=== PATIENT | female | born 1975 | race Asian ===

== ENCOUNTER 2020-11-15 11:58 | Outpatient (CLI) | payer BC, SELFPAY ==
--- NOTE | 2020-11-15 10:45 | DI.RAD_ITS ---
Exam(s) XR SHOULDER RT COMPLETE 2+V EXAM: XR SHOULDER RT COMPLETE 2+V CLINICAL HISTORY: right shoulder pain TECHNIQUE: COMPARISON: No exams were available for comparison FINDINGS: Two views were obtained. Cartilaginous joint space of the glenohumeral joint appears fairly well sadiq ntained. The distal end of the clavicle appears slightly elevated raising the possibility of low-gra de acromioclavicular separation. No other bony or soft tissue abnormality seen. IMPRESSION: RADIATION DOSE DELIVERED: Total DLP
== END 2020-11-15 11:59 | disposition home or self-care (01) ==
LOC: DIORS 11:59
PROVIDERS: PCP Family Medicine; Referring Provider Family Medicine; Visit Provider Student in an Organized Health Care Education/Training Program
DX: M25.511 Pain in right shoulder (principal)
CPT/HCPCS: 73030

== ENCOUNTER 2021-02-14 01:58 | Outpatient (CLI) | payer BC, SELFPAY ==
--- NOTE | 2021-02-14 07:45 | DI.MAMMO_ITS ---
Exam(s) MAMMO SCREENING EXAM: MAMMO SCREENING CLINICAL HISTORY: screening,Z12.39 TECHNIQUE: Bilateral full field digital CC and MLO mammographic images were obtained with 3D tomosyn thesis and utilizing computer aided detection (CAD). COMPARISON: None. FINDINGS: Masses/Architectural Distortion: None seen. Microcalcifications: No suspicious pleomorphic-type are seen. Skin Thickening/Nipple Retraction: None. IMPRESSION: 1. No significant interval change with no specific features of malignancy noted. 2. Unless there is more urgent need, screening mammography is recommended, as per [place] [employer] guidelines. BI-RADS Category 1 - Negative Breast Density - Category C - Heterogeneously dense Breast density category C or D implies that the patient has dense breast tissue. Dense breast tissue is very common and is not abnormal but dense breast tissue can make it harder to find cancer on a ma mmogram. Also, dense breast tissue may increase their breast cancer risk. This information about the result of the mammogram report was provided to the patient to raise their awareness. Use this report when you speak with the patient about their risks for breast cancer, which includes their family hist ory. At that time, you may recommend for more screening tests (Ultrasound or MRI) as they might be us eful based on their risk. A negative radiographic report should not delay biopsy if a dominant or clinically suspicious mass is present. Up to ten percent of cancers are not identified on mammography. A negative report may reinforce clinical impression. Adenosis and dense breasts may obscure an underlying neoplasm. False positive reports average 6 to 10%. Patient will receive a letter notifying them of these results.
== END 2021-02-14 02:18 ==
PROVIDERS: PCP Family Medicine; Visit Provider Nurse Practitioner
DX: Z12.31 Encounter for screening mammogram for malignant neoplasm of breast (principal)
CPT/HCPCS: 77063; 77067

== ENCOUNTER 2021-02-16 11:20 | Outpatient (REF) | payer BC, SELFPAY ==
--- NOTE | 2021-02-16 10:30 | PAPFT_PTH ---
PATIENT: Miki Canales LOC: [facility] U#:[id number] AGE/SX: 45/F ROOM: RE02/16/[address]: KAVYA Jackson : 1975 BED: DIS: 02/16/2021 SPEC #: [id number] RECD: 02/16/21 12:59 STATUS: ANA REShelia #: [id number] NANCY: 02/16/21 10:[address]: Carmen Ricardo DEPT: [facility] Cytology RECD BY: Martha Alba ENTERED: 02/16/21 12:59 SP TYPE: PAPFT PRIYANKA DR: Ivelisse Oliva, PhD VICE PRESIDENT OF CONTRACTS Tissues: 1 - CX/ENDOCX FOR PAP SMEARS Procedures: PAP THIN PREP/UVM Screening HPV DNA PROBE Comments: [id number]
== END 2021-02-16 11:21 | disposition home or self-care (01) ==
LOC: LBN 11:20
PROVIDERS: PCP Nurse Practitioner; Visit Provider Nurse Practitioner Family
DX: Z12.4 Encounter for screening for malignant neoplasm of cervix (principal); Z11.51 Encounter for screening for human papillomavirus (HPV)
CPT/HCPCS: 88142; 87624

== ENCOUNTER 2022-01-18 15:05 | Outpatient (CLI) | payer BC, SELFPAY ==
[2022-01-18 14:49] LABS: HGB 11.9 g/dL (11.2-15.7); MCH 21.2 pg (27.0-33.0); MCHC 30.5 % (32.0-36.0); MPV 11.5 fL (8.0-11.0); Platelet Count 336 10^3/uL (130-400); RBC 5.62 10^6/uL (3.93-5.22); RDW 14.5 % (11.7-14.6); RDW-SD 35.4 fL
[2022-01-18 15:02] LABS: MCV 69 fL (80-95)
[2022-01-18 15:10] LABS: Hemoglobin A1C 5.9 % (<5.7)
[2022-01-18 15:12] LABS: Calculated LDL 94 mg/dL (<100); Cholesterol 162 mg/dL (<200); HDL Cholesterol 58 mg/dL (40-60); Triglyceride 51 mg/dL (<150)
== END 2022-01-18 15:06 | disposition home or self-care (01) ==
LOC: LBO 15:06
PROVIDERS: PCP Nurse Practitioner; Visit Provider Nurse Practitioner
DX: Z13.1 Encounter for screening for diabetes mellitus (principal); D64.9 Anemia, unspecified; Z13.6 Encounter for screening for cardiovascular disorders
CPT/HCPCS: 36415; 80061; 85027; 83036

== ENCOUNTER 2022-10-09 06:15 | Day surgery (SDC) | payer BC, SELFPAY ==
[2022-10-09 06:20] VITALS: BP 115/85; PULSE 103; RESP 16; TEMP 37; O2SAT 99
--- NOTE | 2022-10-09 07:04 | ANES.PREOP_ITS ---
General Info Date of Service Date Performed: 10/09/22 Height: 5 ft 5 in Weight: 62.5 kg Body Mass Index (BMI): 22.9 Surgical Procedure: Operation Date: 10/09/22 07:35 Proposed Procedure Side Surgeon p Santa May MD Meds Allergies and Home Medications Allergies Allergy/AdvReac Type Severity Reaction Status Date / Time No Known Allergies Allergy Unverified 10/09/22 06:39 Home Medication Medication Instructions Recorded cetirizine 10 mg tablet (Zyrtec) 10 mg PO DAILY #90 tabs 12/09/19 hydroxyzine HCl 25 mg tablet 25 mg PO QHS #90 tabs 06/19/22 melatonin 3 mg capsule 3 mg PO HS PRN 06/19/22 bisacodyl 5 mg tablet,delayed 5 mg PO ONCE #4 tabs 09/27/22 release (Dulcolax (bisacodyl)) polyethylene glycol 3350 17 17 g PO ONCE #238 grams 09/27/22 gram/dose oral powder Current Visit Medications: Current Medications Generic Name Dose Route Start Last Admin Trade Name Kay PRN Reason Stop Dose Admin Ringer's Solution 1,000 mls @ 80 mls/hr 10/09/22 06:00 IV 10/09/22 23:59 INFUSION RAFY IV Miscellaneous Supplies 1 each 10/09/22 06:00 Iv Access IV 10/09/22 23:59 DIRECTED RAFY Sodium Chloride 0 ml 10/09/22 06:00 Normal Saline Flush 10 Ml Syr IV 10/09/22 23:59 PRN PRN Sodium Chloride 0 ml 10/09/22 06:00 Normal Saline 10 Ml Vial IJ 10/09/22 23:59 DIRECTED PRN Sterile Water 0 ml 10/09/22 06:00 Water,Injection,Sterile 10 Ml Vial IJ 10/09/22 23:59 DIRECTED PRN PFSH Active Problems Active Problems: Problem Status Onset Code Urticaria L50.9 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 She declined it today. She would also like to wait on her mammogram. Follow-up with in a year or as needed. Obtain basic labs. She has a history of anemia and we will check especially for that. 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 Surgical History Surgical History (Updated 10/09/22 @ 06:40 by Ranjana Lyon) H/O wisdom tooth extraction Tobacco Smoking/Tobacco Use Status: Never Passive smoking exposure: Yes Second hand exposure: Yes Alcohol Alcohol Intake: never Substance Use Substance use: Daily Substance use type: marijuana Vital Signs and Lab Results Vital Signs Most Recent Vital Signs in EMR: Most Recent Vital Signs Temp Pulse Resp BP Pulse Ox 37 C 103 H 16 115/85 99 10/09/22 06:20 10/09/22 06:20 10/09/22 06:20 10/09/22 06:20 10/09/22 06:20 Lab Results Blood Type / Crossmatch: No Data to Display Complete Blood Count: No Data to Display Complete Metabolic Panel: No Data to Display Liver Function Panel: No Data to Display Coagulation Panel: No Data to Display Cardiac Panel: No Data to Display Arterial Blood Gas: No Data to Display Venous Blood Gas: No Data to Display Pancreas Panel: No Data to Display Thyroid Panel: No Data to Display Infectious Disease: No Data to Display Blood Cultures: No Data to Display Toxicology Panel: No Data to Display Panel: No Data to Display Anesthesia Assessment and Plan Anesthesia History Personal History: No History of General Anesthesia Family History: No Family History of Anesthesia Complications Exercise Tolerance Exercise Tolerance: Metabolic Equivalents>4 Pertinent Negatives Pertinent Negatives: No Symptoms of GERD Cardiac & Pulmonary Exam Cardiac Exam: Normal S1/S2 Heart Sounds Pulmonary Exam: Clear Bilateral Breath Sounds Implantable Cardiac Device Does patient have a Pacemaker or an ICD?: No Airway Exam Known Difficult Airway: No Mallampati Class: 1 Mouth Opening: Normal (> 3cm) Thyromental Distance: Greater than 3 cm Neck Range of Motion: Full ROM Neck Circumference: Normal Teeth Condition: Normal Dentition ASA Classification ASA Score: ASA 1 Emergency Case?: No NPO Status NPO Status: NPO Clears >2 hours, Solids >8 hours Status Status: Not Relevant due to Medical History Anesthesia Plan Resuscitation Status: Full Code Anesthesia Technique: General Anesthesia Airway Planned: Natural Airway Monitors Used: Standard Monitors
[2022-10-09] MEDS: Lactated Ringers 1,000 ML 80 ML IV (07:05)
[2022-10-09 07:07] VITALS: BMI 22.9
--- NOTE | 2022-10-09 07:52 | BOWEL_PTH ---
PATIENT: Miki Canales LOC: [facility] U#:[id number] AGE/SX: 47/F ROOM: RE10/09/[address]: Ziyad May : 1975 BED: DIS: 10/09/2022 SPEC #: [id number] RECD: 10/09/22 11:23 STATUS: ANA RE #: [id number] NANCY: 10/09/22 07:[address]: Ziyad May DEPT: Surgical Specimen RECD BY: Martha Alba ENTERED: 10/09/22 11:23 SP TYPE: Bowel OTHR DR: Sanjay Rees DNP Tissues: 1 - BIOPSY BOWEL Procedures: GROSS AND MICRO LEVEL 4 Comments: [id number]
--- NOTE | 2022-10-09 07:57 | W.PM.OP ---
Date of service: 10/09/22 Time of Service: 07:55 Operative Note Operative Note Refer to Anesthesia Record Procedure Description: Procedures performed: 1. Colonoscopy with cold forceps polypectomy x2 Preoperative diagnosis: Screening colonoscopy Postoperative diagnosis: Rectal polyps, grade 1 internal hemorrhoids Surgeon: Walker May Anesthesia: Jimmy Indication for procedure: Patient is a 47-year-old woman who does not have a family history of colon cancer however her father has a history of multiple adenomatous polyps being removed. She does not have any symptoms of bowel habit changes or bleeding. Reportedly she has a chronic mild anemia. The procedure is being done for screening purposes. Findings: The terminal ileum was normal. No inflammation anywhere. No diverticuli. In the rectum, some very small, hyperplastic?appearing polyps were noted and 2 were removed with cold forceps technique. Grade 1 internal hemorrhoids seen. Surveillance/follow-up recommendations: Because of the family history, a repeat colonoscopy can be considered as soon as 5 years. But as long as the polyps are hyperplastic, a 5-10-year interval is acceptable. Complications: None Blood loss: Minimal Specimens:?? YES Quality of Prep:?? Good Procedure in detail: Written consent was obtained from the patient who was in agreement with the risks, benefits and indications of the procedure.? We went to the endoscopy suite and laid the patient in left lateral decubitus position.? Anesthesia was administered which was tolerated well.? A timeout was performed and when we are all in agreement we began the procedure. Digital rectal exam and visual examination was performed and within normal limits.? A well?lubricated colonoscope was advanced without difficulty all the way to the cecum identified by the ileocecal valve, and triangular folds and appendiceal orifice. The terminal ileum was intubated and appeared normal.? It was then slowly withdrawn.?? Retroflexion was performed in the rectum.? The findings/interventions are noted above. The scope was then removed and the patient tolerated the procedure well and was then taken back to the PACU in hemodynamically stable condition.
[2022-10-09 07:58] VITALS: BP 100/51; PULSE 82; RESP 14; TEMP 37; O2SAT 100
[2022-10-09 08:24] VITALS: BP 102/59; PULSE 80; RESP 16; TEMP 36.7; O2SAT 100
--- NOTE | 2022-10-09 08:24 | W.ANESPOSTOP ---
Postoperative Evaluation Date, Time and Location Date Performed: 10/09/22 Time Performed: 08:25 Patient Location: Day Surgery Unit Vital Signs Most Recent Imported Vital Signs: Most Recent Vital Signs Temp Pulse Resp BP Pulse Ox 37.0 C 82 14 100/51 L 100 10/09/22 07:58 10/09/22 07:58 10/09/22 07:58 10/09/22 07:58 10/09/22 07:58 Pain Score Most Recent Pain Score: Most Recent Pain Score Pain Level 0 10/09/22 06:20 Assessment Mental Status: Awake (Alert & Oriented to Patient Baseline) Airway and Respiratory Function: Patent airway with normal (patient baseline) respiratory exam Cardiovascular Function: Hemodynamically Stable Hydration Status: Adequately Hydrated Nausea & Vomiting: No Nausea or Vomiting Pain: Pt. Denies Any Pain Peripheral Nerve Block: Patient did not receive a nerve block
== END 2022-10-09 08:43 | disposition home or self-care (01) ==
PROVIDERS: PCP Nurse Practitioner Family; Visit Provider Student in an Organized Health Care Education/Training Program
PROC: 0DJD8ZZ Inspection of Lower Intestinal Tract, Via Natural or Artificial Opening Endoscopic (ICD-10-PCS; CPT 45378; principal; 2022-10-09 07:30)
DX: Z12.11 Encounter for screening for malignant neoplasm of colon (principal); K62.1 Rectal polyp; K64.0 First degree hemorrhoids
CPT/HCPCS: 45380; 81025; 88305; J2001

== ENCOUNTER 2022-12-04 01:04 | Outpatient (CLI) | payer BC, SELFPAY ==
--- NOTE | 2022-12-04 08:00 | DI.MAMMO_ITS ---
Exam(s) MAMMO SCREENING EXAM: MAMMO SCREENING CLINICAL HISTORY: screening,z12.39 TECHNIQUE: Bilateral full field digital CC and MLO mammographic images were obtained with 3D tomosyn thesis and utilizing computer aided detection (CAD). COMPARISON: Available for comparison. FINDINGS: Masses/Architectural Distortion: None seen. Microcalcifications: No suspicious pleomorphic-type are seen. Skin Thickening/Nipple Retraction: None. IMPRESSION: 1. No significant interval change with no specific features of malignancy noted. 2. Unless there is more urgent need, screening mammography is recommended, as per [place] [employer] guidelines. BI-RADS Category 1 - Negative Breast Density - Category C - Heterogeneously dense Breast density category C or D implies that the patient has dense breast tissue. Dense breast tissue is very common and is not abnormal but dense breast tissue can make it harder to find cancer on a ma mmogram. Also, dense breast tissue may increase their breast cancer risk. This information about the result of the mammogram report was provided to the patient to raise their awareness. Use this report when you speak with the patient about their risks for breast cancer, which includes their family hist ory. At that time, you may recommend for more screening tests (Ultrasound or MRI) as they might be us eful based on their risk. A negative radiographic report should not delay biopsy if a dominant or clinically suspicious mass is present. Up to ten percent of cancers are not identified on mammography. A negative report may reinforce clinical impression. Adenosis and dense breasts may obscure an underlying neoplasm. False positive reports average 6 to 10%. Patient will receive a letter notifying them of these results.
== END 2022-12-04 01:24 ==
PROVIDERS: PCP Nurse Practitioner Family; Visit Provider Nurse Practitioner Family
DX: Z12.31 Encounter for screening mammogram for malignant neoplasm of breast (principal)
CPT/HCPCS: 77063; 77067

== ENCOUNTER 2024-07-03 00:31 | Outpatient (CLI) | payer OTHER, SELFPAY ==
--- OUTSIDE RECORDS SUMMARY | 2024-07-03 00:37 | XMS_ITS | Encounter Summary ---
Author Organization [facility] Address [address] [place] [address] Care Team Providers Care Editorial Cartoonist Name Role Phone Unavailable Primary Care Provider Unavailabl e Encounter Details Date Type Department Care Team (Late st Contact Info) Description 07/27/2008 Before PRISM Converted Visit ([facility]) [facility] - Maple conversion [address] [place] [address] Palomo Santana CNM [address] [id number] Social History Tobacco Use Types Packs/Day Years Used Date Smoking Tobacco: Never Assessed Comments Unknown Sex and Gender Information Value Date Recorded Sex Assigned at Not on file Legal Sex Female 18:44 EST Gender Identity Not on file Sexual Orientation Not on file documented as of this encounter Plan of Treatment Not on file documented as of this encounter Procedures Procedure Name Priority Date/Time Associated Diagnosis Comments CYTOPATHOLOGY Routine 07/27/2008 0:00 EDT documented in this encounter Results * CYTOPATHOLOGY (07/27/2008 0:00 EDT) Pathology Report: CYTOPATHOLOGY REPORT ? Reports generated via electronic interface contain original data; ? however they are lacking the format of the original report. ? Caution should be taken when reading/interpreti ng unformatted reports. ? Name: ? MACARIO GARCIA ? Accession #: ? [id number] ? : ? 1975 (Age: 33) ??F ?Collect Date: ? 07/27/2008 ? Location: ? [facility] ? Receive Date: ? 07/29/2008 ? Provider: ?ANEA LELONG CNM ? Copy to: ? Specimen/Source: ?Pap Test, Cervix/Endocervix, ThinPrep Imaging System ? with manual evaluation ? Last Menstrual Period: ? 12/23/08 ? Menstrual/Pregnanc y Status: ? Other: ? HPVA - HPV testing requested if ASC-US on the current ThinPrep Pap test. ? SPECIMEN ADEQUACY ? Satisfactory for Evaluation ? - transformation zone component present ? - scant squamous epithelial component secondary to excessive blood ? GENERAL CATEGORIZATION ? Negative for Intraepithelial Lesion or Malignancy ? Document reviewed and electronically signed by: ? Makeda Que, CT(ASCP) ? Report Date: ??07/30/2008 13:29 ? End of Report ? [facility] 07/27/2008 07/29/2008 us Palomo Santana CNM PATHOLOGY ORDERABLES Final Resul t [facility] [address] [place] [address] documented in this encounter Visit Diagnoses Not on filedocumented in this encounter
--- OUTSIDE RECORDS SUMMARY | 2024-07-03 00:37 | XMS_ITS | Clinical Summary ---
Author Organization [facility] Address [address] [place] [address] Care Team Providers Care Associate Professor Physician Name Role Phone Unknown, Provider Primary Care Provider Unava ilable Social History Tobacco Use Types Packs/Day Years Used Date Smoking Tobacco: Never Assessed Comments Unknown Sex and Gender Information Value Date Recorded Sex Assigned at Not on file Legal Sex Female 18:44 EST Gender Identity Not on file Sexual Orientation Not on file Plan of Treatment Health Maintenance Due Date Last Done Comments Hepatitis C Screen 1975 Hepatitis B Vaccine (1 of 3 - 19+ 3-dose series) 05/17 COVID-19 Vaccine (2023- season) 2024 Insurance [facility] Care Teams Associate Professor Physician Relationship Specialty Start Date End Date Unknown, Provider, PCP - General 03/31/15
--- OUTSIDE RECORDS SUMMARY | 2024-07-03 00:37 | XMS_ITS | Referral Summary ---
Author Organization [facility] Address [address] [place] [address] Care Team Providers Care Petrophysicist Name Role Phone Unknown, Provider Primary Care Provider Unava ilable Social History Tobacco Use Types Packs/Day Years Used Date Smoking Tobacco: Never Assessed Comments Unknown Sex and Gender Information Value Date Recorded Sex Assigned at Not on file Legal Sex Female 18:44 EST Gender Identity Not on file Sexual Orientation Not on file Plan of Treatment Not on file Insurance [facility] Address: [address] [id number] Care Teams Petrophysicist Relationship Specialty Start Date End Date Unknown, Provider, PCP - General 03/31/15
--- OUTSIDE RECORDS SUMMARY | 2024-07-03 00:37 | XMS_ITS | Encounter Summary ---
Author Organization [facility] Address [address] [place] [address] Care Team Providers Care Public Transportation Inspector Name Role Phone Unavailable Primary Care Provider Unavailabl e Encounter Details Date Type Department Care Team (Late st Contact Info) Description 12/09/2009 Results Only [facility] Laboratory Services - [facility] ([facility]) [address], [place] [id number] Carmen Ricardo, [facility] [address] [place] [phone] Social History Tobacco Use Types Packs/Day Years [...] Procedure Name Priority Date/Time Associated Diagnosis Comments HPV DETECTION, HIGH RISK TYPES Routine 12/09/2009 13:51 EDT CYTOPATHOLOGY Routine 12/09/2009 0:00 EDT documented in this encounter Results * HUMAN PAPILLOMA VIRUS DNA TEST (12/09/2009 13:51 EDT) Specimen Description Cervix, ThinPrep vial [facility] Result This specimen had inadequate cells for cytologic interpretation. Negative results of HPV testing should be interpreted with caution. If clinicallyindic ated, please consider submission of an additional specimen. Negative for HPV types 16, 18, 31, 33, 35, 39, 45, 51, 52, 56, 58, 59, and 68. [facility] Report Status Final 12/21/2009 [facility] 12/09/2009 13:5 1 EDT 12/19/2009 13:51 EDT us Carmen Ricardo SLIP SEAT COVERER MICROBIOLOGY - GENERAL ORDER BRIGITTE Final Result [facility] [address] [place] [address] * CYTOPATHOLOGY (12/09/2009 0:00 EDT) Pathology Report: CYTOPATHOLOGY REPORT ? Reports generated via electronic interface contain original data; ? however they are lacking the format of the original report. ? Caution should be taken when reading/interpreti ng unformatted reports. ? Name: ? MACARIO GARCIA ? Accession #: ? [id number] ? : ? 1975 (Age: 34) ??F ?Collect Date: ? 12/09/2009 ? Location: ? [facility] ? Receive Date: ? 12/12/2009 ? Provider: ?CARMEN SALBADOR SLIP SEAT COVERER ? Copy to: ? Specimen/Source: ?Pap Test, Cervix/Endocervix, ThinPrep Imaging System ? with manual evaluation ? Last Menstrual Period: ? Hormonal/Contracep tive Status: ? Depo-Provera ? Other: ? HPVA - HPV testing requested if ASC-US on the current ThinPrep Pap test. ? Additional clinical information: 3//09 pap WNL ? SPECIMEN ADEQUACY ? Unsatisfactory for Evaluation, ? - insufficient numbers of squamous epithelial cells (less than 10% of expected ?? cellularity) ? GENERAL CATEGORIZATION ? Specimen processed and examined, but unsatisfactory for evaluation of ? epithelial abnormality. ? Recommend repeat Pap test or further follow up, as clinically indicated. ? Document reviewed and electronically signed by: ? Marcin Lane, CT(ASCP) ? Report Date: ??12/15/2009 13:15 ? End of Report ? [facility] 12/09/2009 12/12/2009 us Carmen Ricardo SLIP SEAT COVERER PATHOLOGY ORDERABLES Final R esult [facility] [address] [place] [address] documented in this encounter Visit Diagnoses Not on filedocumented in this encounter
--- OUTSIDE RECORDS SUMMARY | 2024-07-03 00:37 | XMS_ITS | Encounter Summary ---
Author Organization [facility] Address [address] [place] [address] Care Team Providers Care Head Char Filter Tank Tender Name Role Phone Unknown, Provider Primary Care Provider Leanna castro Encounter Details Date Type Department Care Team (Late st Contact Info) Description 10/09/2022 Lab Requisition [facility] Pathology & Laboratory Medicine - [facility] [address] [place] [address] Ziyad May MD [address] [place] [phone] Encounter for other general examination Social History Tobacco Use Types Packs/Day Years [...] Procedure Name Priority Date/Time Associated Diagnosis Comments SURGICAL PATHOLOGY Today 10/09/2022 7: 52 EDT Encounter for other general examination documented in this encounter Results * SURGICAL PATHOLOGY (10/09/2022 7:52 EDT) Note to Patient The following pathology results have been interpreted by your pathologist and may be available to you before your health provider has had the opportunity to review them. Please allow time for your provider to receive these results and explore management options, if applicable. 10/10/2022 12:44 EDT [facility] Final Diagnosis A. RECTUM, POLYP X2, BIOPSY: - Hyperplastic polyps. 10/10/2022 12:44 EDT [facility] Attestation By the signature below, the attending physician certifies that they have 1) personally conducted a gross and/or microscopic examination of the described specimen(s), and/or personally interpreted the results of laboratory testing of the described specimen(s), and 2) personally rendered or confirmed the above diagnosis. 10/10/2022 12:44 T [facility] at 1244 Clinical History Screening; clinical diagnosis code: Z12.11 10/10/2022 12:44 EDT [facility] Gross Description A. Received in formalin labelled with proper patient identification (initials H, E) and rectal polyp x2 are 2 light ribeiro tissues measuring 0.2 x 0.2 x 0.1 cm and 0.5 x 0.2 x 0.1 cm. Submitted intact in A1. ANANT HERNADEZ(ASCP) 10/09/2022 19:26 10/10/2022 12:44 EDT [facility] Performing Lab [facility] 10/10/2022 12:44 T [facility] Scanned Images 10/10/2022 12:44 T [facility] Tissue SPECIMEN FROM RECTUM / Unknown 10/09/2022 7:52 EDT 10/09/2022 17:13 EDT us Ziyad May MD PATHOLOGY ORDERABLES F inal Result [facility] [address] [place] [address] documented in this encounter Visit Diagnoses Diagnosis Encounter for other general examination documented in this encounter Care Teams Head Char Filter Tank Tender Relationship Specialty Start Date End Date Unknown, Provider, PCP - General 03/31/15 documented as of this encounter
--- OUTSIDE RECORDS SUMMARY | 2024-07-03 00:37 | XMS_ITS | Encounter Summary ---
Author Organization [facility] Address [address] [place] [address] Care Team Providers Care Resource Agent Name Role Phone Unknown, Provider Primary Care Provider Unava ilable Encounter Details Date Type Department Care Team (Late st Contact Info) Description 02/20/2021 Lab Requisition [facility] & Laboratory Medicine - [facility] [address] [place] [address] Carmen Ricardo, [facility] [address] [place] [phone] Encounter for other general examination Social History [...] Procedure Name Priority Date/Time Associated Diagnosis Comments PAP TEST Today 02/16/2021 10:30 EDT Encounter for other general examination HPV DNA DETECTION WITH GENOTYPING, PCR Today 02/16/2021 10:30 EDT Encounter for other general examination documented in this encounter Results * HUMAN PAPILLOMAVIRUS (HPV) DETECTION-HIGH RISK TYPES (02/16/2021 10:30 EDT) HPV other High Risk types, PCR Negative Negative 03/04/2021 14:15 EDT [facility] Comment:No E6 or E7 mRNA is detected from HPV types 16,18,31,33,35,39,45,51,52,56,58,59,66, and 68 by director project management mediated amplification. Papanicolaou smear specimen (specimen) CERVIX UTERI STRUCTURE / Unknown 02/16/2021 10:30 EDT 03/02/2021 13:22 EDT us Carmen Ricardo TELEVISION ENGINEER MICROBIOLOGY - GENERAL ORDER BRIGITTE Final Result [facility] [address] [place] [address] * PAP TEST (02/16/2021 10:30 EDT) Specimens A. Cervix and/or Endocervix , ThinPrep Imaging System with Manual Evaluation 03/04/2021 14:15 [facility] Specimen Adequacy Satisfactory for Evaluation - transformation zone component present 03/04/2021 14:15 [facility] General Categorization Negative for intraepithelial lesion or malignancy 03/04/2021 14:15 [facility] Attestation . 03/04/2021 14:15 [facility] at 1415 Clinical History See below 03/04/20 14:15 T [facility] HPV The result for the Human Papillomavirus (HPV) Detection-High Risk Types is Negative. No E6 or E7 mRNA is detected from HPV types 16,18,31,33,35,39 ,45,51,52,56,58,5 9,66, and 68 by director project management mediated amplification.Sheryl ting was performed on specimen [id number] and was resulted on 03/04/2021 1413 EDT by KATHIE, LAB INSTRUMENT RESULTS IN 03/04/2021 14:15 T [facility] Performing Lab [facility] 03/04/2021 14:15 [facility] Scanned Images 03/04/2021 14:15 [facility] Papanicolaou smear specimen (specimen) CERVIX UTERI STRUCTURE / Unknown 02/16/2021 10:30 EDT 02/20/2021 12:04 EDT us Carmen Ricardo TELEVISION ENGINEER PATHOLOGY ORDERABLES Final R esult [facility] [address] [place] [phone] documented in this encounter Visit Diagnoses Diagnosis Encounter for other general examination documented in this encounter Care Teams Resource Agent Relationship Specialty Start Date End Date Unknown, Provider, PCP - General 03/31/15 documented as of this encounter
--- NOTE | 2024-07-03 07:45 | DI.MAMMO_ITS ---
Exam(s) MAMMO SCREENING EXAM: MAMMO SCREENING CLINICAL HISTORY: screening,z12.39. TECHNIQUE: Bilateral full field digital CC and MLO mammographic images were obtained with 3D tomosyn thesis and utilizing computer aided detection (CAD). COMPARISON: Prior mammograms were reviewed. FINDINGS: There has been no significant change in the appearance and distribution of the fibroglandular tissue. There are no new spiculated masses nor malignant appearing microcalcification groups. There is no significant architectural distortion nor skin thickening-retraction. IMPRESSION: No radiographic evidence of malignancy. BI-RADS Category 1 - Negative Breast Density - Category C - Heterogeneously dense Breast density Category C or D implies that the patient has dense breast tissue. Dense breast tissue can make it harder to find cancer on a mammogram. Dense breast tissue is also associated with an incr eased risk of breast cancer. This information about the result of the mammogram report was provided to the patient to raise their awareness. Use this report when you speak with the patient about their risks for breast cancer, which includes their family history. At that time, you may recommend additional screening tests (Ultrasoun d or MRI) as these tests may add significant information. A negative radiographic report should not delay biopsy if a dominant or clinically suspicious mass is present. Up to ten percent of cancers are not identified on mammography. A negative report may reinforce clinical impression. Adenosis and dense breasts may obscure an underlying neoplasm. False positive reports average 6 to 10%. Patient will receive a letter notifying them of these results.
== END 2024-07-03 00:51 ==
PROVIDERS: PCP Nurse Practitioner Family; Visit Provider Nurse Practitioner Family
DX: Z12.31 Encounter for screening mammogram for malignant neoplasm of breast (principal); R92.333 Mammographic heterogeneous density, bilateral breasts
CPT/HCPCS: 77063; 77067